=== PATIENT | male | born 1960 ===

== ENCOUNTER 2017-02-08 14:25 | Emergency (ER) | payer MEDICAID ==
[2017-02-08 14:38] VITALS: BP 130/94
--- NOTE | 2017-02-08 14:47 | EDM.PDOC ---
ED HPI GENERAL MEDICAL PROBLEM - General Chief Complaint: General Stated Complaint: RIGHT SIDE OF FACE SWOLLEN Time Seen by Provider: 02/08/17 14:46 - History of Present Illness INITIAL COMMENTS - FREE TEXT/NARRATIVE: 57-year-old male presents emergency room with right sided facial swelling. This started several hours before arrival and is improving somewhat at this point the patient may have had prior episodes like this in the past but nothing recently. Patient has not had any fevers or chills does not feel sick area the patient has some redness on his left lower leg and he noticed this earlier today. Patient denies any significant pain or discomfort. - Related Data Allergies Allergy/AdvReac Type Severity Reaction Status Date / Time No Known Allergies Allergy Verified 07/30/14 10:49 Home Meds: Home Meds Cephalexin [IJD: Cephalexin] 500 mg PO Q6H #40 cap 02/08/17 [Rx] Past Medical History Musculoskeletal History: Reports: Other (See Below) Other Musculoskeletal History: fractured ankle age 13 Social & Family History - Tobacco Use Smoking Status *Q: Current Every Day Smoker Years of Tobacco use: 20 Packs/Tins Daily: 1 - Caffeine Use Caffeine Use: Reports: None - Recreational Drug Use Recreational Drug Use: No ED ROS GENERAL - Review of Systems Review Of Systems: See Below Constitutional: Denies: Fever, Chills, Malaise, Weakness HEENT: Reports: Other (Not have significant discomfort however has had this right-sided facial swelling over his upper jaw and into the area of the maxillary sinus this is mostly in front of his ear.) Respiratory: Reports: No Symptoms Cardiovascular: Reports: No Symptoms GI/Abdominal: Reports: No Symptoms Neurological: Reports: No Symptoms ED EXAM, GENERAL - Physical Exam Exam: See Below Exam Limited By: No Limitations General Appearance: Alert, No Apparent Distress Eye Exam: Bilateral Eye: Normal Inspection Nose: Normal Inspection, Normal Mucosa, No Blood Throat/Mouth: Normal Lips, Other (Patient has poor dentition but this is not acute at this point the right side of his mouth he's got some obvious swelling no erythema and no warmth feel swollen Stensen's duct is inflamed no obvious stone left side normal submandibular glands normal) Head: Atraumatic, Facial Swelling (Right preauricular area) Neck: Normal Inspection, Supple, Non-Tender, Full Range of Motion. No: Lymphadenopathy (L), Lymphadenopathy (R) Respiratory/Chest: No Respiratory Distress, Lungs Clear, Normal Breath Sounds Cardiovascular: Regular Rate, Rhythm, No Edema, No Murmur Course - Vital Signs Last Recorded V/S: Last Vital Signs Temp 37.4 C 02/08/17 14:37 Pulse 92 02/08/17 14:37 Resp 20 02/08/17 14:37 BP 130/94 H 02/08/17 14:37 Pulse Ox 93 L 02/08/17 14:37 - Orders/Labs/Meds Orders: Active Orders 24 hr Category Date Time Status Soft Tissue Neck w Cont [CT] Stat Exams 02/08/17 15:23 Taken Sodium Chloride 0.9% [Saline Flush] Med 02/08/17 15:45 Active 10 ml FLUSH ONETIME PRN Medication Orders Sodium Chloride (Saline Flush) 10 ml FLUSH ONETIME PRN PRN Reason: IV FLUSH Last Admin: 02/08/17 15:58 Dose: 10 ml Labs: Laboratory Tests 02/08/17 02/08/17 Range/Units 15:40 15:40 WBC 15.32 H (4.23-9.07) K/mm3 RBC 5.33 (4.63-6.08) M/mm3 Hgb 15.7 (13.7-17.5) gm/L Hct 44.8 (40.1-51.0) % MCV 84.1 (79.0-92.2) fl MCH 29.5 (25.7-32.2) pg MCHC 35.0 (32.2-35.5) g/dl RDW Std Deviation 40.9 (35.1-43.9) fL Plt Count 315 (163-337) K/mm3 MPV 10.0 (9.4-12.3) fl Neutrophils % (Manual) 75 H (40-60) % Band Neutrophils % 0 (0-10) % Lymphocytes % (Manual) 19 L (20-40) % Atypical Lymphs % 0 % Monocytes % (Manual) 5 (2-10) % Eosinophils % (Manual) 1 (0.8-7.0) % Basophils % (Manual) 0 L (0.2-1.2) Platelet Estimate Adequate Plt Morphology Comment Normal RBC Morph Comment Normal Sodium 141 (136-145) mEq/L Potassium 3.7 (3.5-5.1) mEq/L Chloride 103 (98-107) mEq/L Carbon Dioxide 24 (21-32) mEq/L Anion Gap 17.7 H (5-15) BUN 18 (7-18) mg/dL Creatinine 0.9 (0.7-1.3) mg/dL Est Cr Clr Drug Dosing 79.72 mL/min Estimated GFR (MDRD) > 60 (>60) mL/min BUN/Creatinine Ratio 20.0 H (14-18) Glucose 208 H (74-106) mg/dL Calcium 8.9 (8.5-10.1) mg/dL Meds: Medications Generic Name Dose Route Start Last Admin Trade Name Freq PRN Reason Stop Dose Admin Sodium Chloride 10 ml 02/08/17 15:45 02/08/17 15:58 Saline Flush FLUSH 10 ml ONETIME PRN Administration IV FLUSH Discontinued Medications Generic Name Dose Route Start Last Admin Trade Name Freq PRN Reason Stop Dose Admin Iopamidol 100 ml 02/08/17 15:45 02/08/17 15:58 Isovue-300 (61%) IVPUSH 02/08/17 15:46 100 ml ONETIME ONE Administration - Re-Assessments/Exams Free Text/Narrative Re-Assessment/Exam: 02/08/17 17:00 CBC shows a mildly elevated white count without bandemia chemistries most notable for blood sugar of 208. With his findings I did get a CT which is consistent with sialadenitis with inflammatory changes. With inflammatory changes noted and the elevated white count we'll start antibiotics. Patient is advised no uncertain terms to follow-up with his regular provider or the Hospital clinic early this next week if he does not improve he'll need to follow-up with ENT this next week. Departure - Departure Time of Disposition: 16:52 Disposition: Home, Self-Care 01 Clinical Impression: Sialadenitis - Discharge Information Prescriptions: Cephalexin [IJD: Cephalexin] 500 mg PO Q6H #40 cap Referrals: PCP,None [Primary Care Provider] - Forms: ED Department Discharge Additional Instructions: Return to the emergency room with any questions or problems or worsening symptoms. Follow-up with your regular provider in 2-3 days for recheck. You may also follow-up with the Hospital clinic here. If this does not get better in several days he should follow-up with a earth sciences professor in [place]. After this episode is improved you will need follow-up for your elevated blood sugar and it is recommended you have a good health maintenance evaluation. Gently massage the swollen area every few hours while awake. Moist heat to this area can be helpful. Lemon drops can be helpful. - My Orders Last 24 Hours: My Active Orders 02/08/17 15:23 Soft Tissue Neck w Cont [CT] Stat 02/08/17 15:45 Sodium Chloride 0.9% [Saline Flush] 10 ml FLUSH ONETIME PRN - Assessment/Plan Last 24 Hours: My Active Orders 02/08/17 15:23 Soft Tissue Neck w Cont [CT] Stat 02/08/17 15:45 Sodium Chloride 0.9% [Saline Flush] 10 ml FLUSH ONETIME PRN
[2017-02-08] MEDS ORDERED: Iopamidol 612 MG/ML 100 ML Bottle IVPUSH ONE (15:45)
[2017-02-08] MEDS ORDERED: Sodium Chloride 0.9% 10 ML Syringe FLUSH PRN (15:45)
--- NOTE | 2017-02-09 17:11 | CT ---
CT neck Technique: Multiple axial sections were obtained from above the external auditory canals inferiorly to the lung apices. Intravenous contrast was utilized. Reconstructed coronal and sagittal images were reviewed. Comparison: No previous study. Findings: Right parotid salivary gland shows slight enlargement as compared the left side. Mild inflammatory change is identified around the right parotid salivary gland. No abnormal calcifications are seen to indicate definite right-sided stone. Several calcifications are seen within the left parapharyngeal soft tissues believed to be incidental since this is the nonsymptomatic side. Mild mucosal thickening is seen within the maxillary sinuses. Submandibular salivary glands are normal. Small normal-appearing scattered lymph nodes are seen. Minimal degenerative change is scattered within the cervical spine. Impression: 1. Slightly enlarged right parotid salivary gland with mild surrounding inflammatory change which is felt compatible with sialadenitis. No right-sided parotid stones are seen. 2. Mild sinus findings which are felt to be incidental and chronic. 3. Several small calcifications within the left parapharyngeal soft tissues felt to be incidental. Diagnostic code #3 Agree with preliminary report issued by [facility] ([facility] preliminary report dictated on 02/08/17, 5:26 PM Central Time)
== END 2017-02-08 17:05 | disposition home or self-care (01) ==
LOC: JD.ED 14:25
DX: K11.20 Sialoadenitis, unspecified (principal); F17.210 Nicotine dependence, cigarettes, uncomplicated
CPT/HCPCS: 36415; 70491; 80048; 85025; 99284; J7050; Q9967; 99283